=== PATIENT | female | born 1990 ===

== ENCOUNTER 2017-03-27 19:06 | Inpatient (IN) | payer MEDICAID, SELFPAY ==
[2015-03-23 20:53] VITALS: BMI 34.3
--- NOTE | 2017-03-27 20:02 | OBHP ---
Datetime: 03/27/2017 19:54 IP Adm Impression: Postterm, intrauterine IP Adm Impression Other: early labor IP Admit Plan: Admit to unit; Initiate labor protocol Admit Comment, IP Provider: chief complaint-contractions HPI 26 y/o at 41 wga with c/o ctx.also was scheduled for induction as per patient course positive ppd; neg chest x ray PMH denies PSH denies OBGYN HX ; [id number] Social hx denies tobacco,alcohol or illicit drug use Exam see exam section A/P 26 y/o at 41 wga in early labor.Post term -admit -see orders Pelvic Type - PN: Adequate Extremities - PN: Normal Abdomen - PN: Normal Back - PN: Normal Lungs - PN: Normal Heart - PN: Normal Neurologic - PN: Normal HEENT - PN: Normal Weight - Estimated: 3200 Presentation-Admit: Vertex Contraction Comments Provider: irregular Gestation - Est Wks by US: 41.0 EGA AdmitDate IP: 41.0 Vital Signs Provider: Reviewed; Within Normal Limits IP Chief Complaint: Uterine contractions FHR Category Provider Fetus A: Category I Dilatation, Provider: 3 Effacement, Provider: 70 Station, Provider: -2 Genitourinary Exam: Normal DTRs - PN: Normal
[2017-03-27] MEDS: Lactated Ringer's 1,000 ML IV SCH (20:20)
[2017-03-27 20:56] LABS: CHLORIDE 107 mmol/L (98-107)
[2017-03-27 20:57] LABS: POTASSIUM 3.4 mmol/L (3.6-5.2); SODIUM 137 mmol/L (132-148)
[2017-03-27 20:58] LABS: RBC URINE < 1 /hpf (0-3); TRANSITIONAL EPITHIAL < 1 /hpf (0-3); URINE BACTERIA OCC (<OCC); URINE BILIRUBIN NEGATIVE (NEGATIVE); URINE BLOOD NEGATIVE (NEGATIVE); URINE COLOR Yellow (YELLOW); URINE GLUCOSE (UA) NORMAL (Normal); URINE KETONE NEGATIVE (NEGATIVE); URINE LEUKOCYTE ESTERASE TRACE Leu/uL (Negative); URINE PROTEIN 1+ mg/dL (NEGATIVE); URINE UROBILINOGEN NORMAL mg/dL (0.2-1.0); WBC URINE 7 /hpf (0-5)
[2017-03-27 20:59] LABS: CARBON DIOXIDE 20 mmol/L (22-30); GFR AFRICAN-AMERICAN > 60
[2017-03-27 21:00] LABS: ALB/GLOB RATIO 0.9 (1.0-2.1); ALKALINE PHOSPHATASE 278 U/L (38-126); ALT/SGPT 40 U/L (9-52); AST/SGOT 41 U/L (14-36); BILIRUBIN,TOTAL 0.5 mg/dL (0.2-1.3); BLOOD UREA NITROGEN 7 mg/dL (7-17); CALCIUM 8.8 mg/dl (8.6-10.4); GLUCOSE,RANDOM 103 mg/dL (65-105); TOTAL PROTEIN 6.5 g/dL (6.3-8.3)
[2017-03-27 21:02] LABS: BASO % 0.4 % (0.0-2.0); EOS % 0.5 % (0.0-4.0); HEMATOCRIT 35.8 % (34.0-47.0); LYMPH # 1.4 K/uL (1.0-4.3); LYMPH % 19.3 % (20.0-40.0); MEAN CELL VOLUME 93.7 fL (81.0-99.0); MEAN CORPUSCULAR HEMOGLOBIN 32.3 pg (27.0-31.0); MEAN CORPUSCULAR HGB CONC 34.4 g/dL (33.0-37.0); MEAN PLATELET VOLUME 10.5 fL (7.2-11.7); MONO # 0.5 K/uL (0.0-0.8); MONO % 7.1 % (0.0-10.0); RED CELL DISTRIBUTION WIDTH 13.8 % (11.5-14.5); WHITE BLOOD COUNT 7.4 K/uL (4.8-10.8)
[2017-03-28] MEDS ORDERED: Oxytocin 30 UNIT 30 UNITS/500 ML BAG IV PRN (03:00)
[2017-03-28] MEDS: Lactated Ringer's 1,000 ML IV SCH (04:15)
[2017-03-28] MEDS ORDERED: Oxytocin 30 UNIT 30 UNITS/500 ML BAG IV ONE (04:33)
[2017-03-28] MEDS ORDERED: Lidocaine 2% Inj (20ml) ONE (05:59)
[2017-03-28] MEDS ORDERED: Benzocaine/Menthol 20%-0.5% Topical Spray (60 ml) TOP PRN (06:31)
[2017-03-28] MEDS ORDERED: Oxycodone/Acetaminophen 5/325 mg Tab PO PRN ×2 (06:31)
--- NOTE | 2017-03-28 06:31 | OBDS ---
DELIVERY PERSONNEL Delivery Doctor: Justino Graham MD MATERNAL INFORMATION Delivery Anesthesia: Local Medications in Delivery: PITOCIN, METHERGIN 0.25MG IM Estimated Blood Loss (ml): 400 RN Comments: ALIVE MALE INFANT DELIVERED. /S- 06/10, WT DELIVERY ATTENDED BY DR GRAHAM AND INFANT ATTENDED BY REGINE (Annotations: Data stored by [facility] on [facility] of user) Provider Comments: of a male from [place] position.Body and shoulders delivered without diffi culty Cord clamped and cut.cord blood collected Placenta spontaneously delivered.Fundal massage done. 20 units pitocin mixed in crystalloids started.Atonic uterus noted .Bimanual compression done.0.2M G IM methergine given after which bleeidng started to slow down and uterus stated to firm up. Second degree perineal laceration repaired with 2-0 chromic in layers Small blood clot removed from lower uterine sgement.Fundus note dto be firm. Cytotec 1000mcg placed rectally. Fundus firm.Patient stable. Apgars 9/9 at 1 and 5 min of life LABOR SUMMARY EDC: 03/20/2017 00:00 No. Babies in Womb: 1 LABOR INFORMATION Cervical Ripening Agents: Cytotec @ 50mcg po Group B Beta Strep: Negative VAGINAL DELIVERY Episiotomy: None Laceration Extension: Second Degree Laceration Type: Perineal Laceration Repair: Yes Sponge Count Correct: Yes; Vaginal Sweep Performed Sharps Count Correct: Yes BABY A INFORMATION Method of Delivery: Vaginal INFORMATION BABY A Sex: Male IDENTIFICATION/MEDS BABY A ID Band Number: [id number] Sensor Number: [id number]
[2017-03-28] MEDS ORDERED: cefOXitin IV 2 gm in Dextrose 2 GM/50 ML BAG IVPB ONE ×2 (07:00→07:22)
[2017-03-28] MEDS: Multiple Vitamins Tab PO SCH (10:31)
--- NOTE | 2017-03-29 08:09 | OBPPN ---
Datetime: 03/29/2017 08:07 PP Pain Prov: Within normal limits PP Nausea Prov: Denies PP Flatus Prov: Yes PP Abdomen/Uterus Prov: Normal PP Lochia Prov: Normal PP Extremities Prov: Normal PP Comments Phys Exam Prov: fudus below umblicus ext no edema,no calf ten PP Impression Prov: Normal progression PP Plan Prov: Continue present management PP Progress Note Prov: pt was seen at bed side, pain under control,no n/v, tolerating deit, voiding, min lochia,flatus = ppd#1 s/p cont pain management cont pp care Vital Signs Provider PP: Reviewed; Within Normal Limits
[2017-03-29 09:00] LABS: BASO # 0.1 K/uL (0.0-0.2); BASO % 0.7 % (0.0-2.0); EOS # 0.1 K/uL (0.0-0.7); EOS % 0.6 % (0.0-4.0); HEMATOCRIT 33.9 % (34.0-47.0); LYMPH # 2.2 K/uL (1.0-4.3); LYMPH % 21.2 % (20.0-40.0); MEAN CELL VOLUME 94.5 fL (81.0-99.0); MEAN CORPUSCULAR HEMOGLOBIN 32.2 pg (27.0-31.0); MEAN CORPUSCULAR HGB CONC 34.1 g/dL (33.0-37.0); MEAN PLATELET VOLUME 10.7 fL (7.2-11.7); MONO # 0.5 K/uL (0.0-0.8); MONO % 5.1 % (0.0-10.0); RED CELL DISTRIBUTION WIDTH 13.7 % (11.5-14.5); WHITE BLOOD COUNT 10.5 K/uL (4.8-10.8)
[2017-03-29] MEDS: Multiple Vitamins Tab PO SCH (09:05)
[2017-03-29 16:18] VITALS: TEMP 97.7
[2017-03-30 00:26] VITALS: RESP 20
[2017-03-30 08:17] VITALS: PULSE 69
[2017-03-30 08:19] VITALS: BP 117/68; O2SAT 98
--- NOTE | 2017-03-30 10:10 | OBPPN ---
Datetime: 03/30/2017 10:04 PP Pain Prov: Within normal limits PP Nausea Prov: Denies PP Flatus Prov: Yes PP BM Prov: Yes PP Breasts Prov: Normal PP Heart Prov: Normal PP Lungs Prov: Normal PP Abdomen/Uterus Prov: Normal PP Lochia Prov: Normal PP Vulva/Perineum Prov: Normal PP CVA Tenderness Prov: Normal PP Extremities Prov: Normal PP C/S Incision Prov: Not Applicable PP Progress Prov: Normal PP Comments Phys Exam Prov: Abdomen: Obese. Soft, Non distended. Fundus firm, mobile, non tender 2 F B below umbilicus. Mild lochia rubra All other systems reviewed and are negative PP Impression Prov: Normal progression PP Plan Prov: Discharge PP Progress Note Prov: Patient received in bed, room 452. Breast- and bottlefeeding. Denies dizzines s, shortness of breath, paliptations. Ambulating and voiding without difficulty. P.E.: as above. Mildly obese in NAD. Awake, alert, oriented to time, person and place. - PPD#1 H/H 11.6/33.9. Rh(+) Assessment: PPD#2 26 yo P2, S/P ; Afebrile, vital signs stable. Considering permanent steriliza tion; advised on need for counseling and signing of consent and wait period. In the meantime, desires to use injection. Clinically stable. Plan: 1) Discharge home 2) See full discharge instructions Vital Signs Provider PP: Reviewed
--- NOTE | 2017-03-30 10:10 | OBDCSUM ---
Datetime: 03/30/2017 09:17 Discharged to, Provider: Home Follow up at, Provider: [facility], [place] Disch Instr Activity: Normal activity Disch Instr Diet: Regular Discharge Instructions, Provider: Routine instructions given Discharge Diagnosis, Provider: Postterm Delivery Discharge Time: 03/30/2017 09:17 Follow up in weeks, Provider: 05/09/17 Disch Referrals: None Contraception discussed, Prov: Yes Disch Activity Restrictions: No sexual activity; Nothing in vagina - [place], tampons, douche Discharge Diagnosis Prov Other: Contraception counseling Contraception after Delivery: Depo-Provera; Tubal Ligation
[2017-03-30] MEDS: Multiple Vitamins Tab PO SCH (10:22)
== END 2017-03-30 14:02 | disposition home or self-care (01) | DRG 775 ==
LOC: C.EROB 19:06 → C.4D 20:09 → C.4M 03-28 08:45
PROVIDERS: ADMIT Student in an Organized Health Care Education/Training Program; ATTEND Student in an Organized Health Care Education/Training Program
PROC: 10E0XZZ Delivery of Products of Conception, External Approach (ICD-10-PCS; principal; 2017-03-28)
PROC: 0KQM0ZZ Repair Perineum Muscle, Open Approach (ICD-10-PCS; 2017-03-28)
DX: O48.0 Post-term pregnancy (principal); O70.1 Second degree perineal laceration during delivery; Z3A.41 41 weeks gestation of pregnancy; Z37.0 Single live birth